=== PATIENT | female | born 1955 | race Hispanic/Latino ===

== ENCOUNTER 2018-12-22 14:44 | Outpatient (CLI) | payer MEDICARE ==
--- NOTE | 2018-12-22 15:34 | Cat Scan Report ---
CT BRAIN: 12/22/2018 INDICATION / CLINICAL INFORMATION: Visual disturbance. COMPARISON: None available. FINDINGS: BRAIN/INTRACRANIAL STRUCTURES: Unenhanced CT images of the brain were obtained. Some patient motion artifact is present. There is no evidence of acute abnormality. Ventricles and sulci are somewhat prominent in size, consistent with diffuse cerebral atrophy. There is no evidence of hemorrhage or mass. There are no abnormal extra-axial fluid collections. EXTRACRANIAL STRUCTURES: Unremarkable. IMPRESSION: No acute abnormality. Atrophic changes. All CT scans at this location are performed using dose reduction to ALARA by means of automated expos ure control. Signer Name: Osman Franks MD Signed: 12/22/2018 3:29 PM Workstation Name: [id number]
== END 2018-12-22 14:45 | disposition home or self-care (01) ==
LOC: CT 14:44
PROVIDERS: ATTEND Psychiatry & Neurology Neurology
DX: H47.093 Other disorders of optic nerve, not elsewhere classified, bilateral (principal)
CPT/HCPCS: 70450